=== PATIENT | male | born 1945 | race Caucasian/White ===

== ENCOUNTER 2024-04-23 13:28 | Emergency (ER) | payer MEDICARE ==
[2024-04-23 13:41] VITALS: TEMP 97.3
--- NOTE | 2024-04-23 13:45 | ED ---
General Adult HPI - General Chief complaint: Syncope Stated complaint: Syncope Time Seen by Provider: 04/23/24 13:38 Source: patient, EMS Mode of arrival: EMS - History of Present Illness Initial comments: Pt is an 78-year-old male presenting for syncopal episode and rib pain. Recently drove up from [place], where he lives. Was working in his attic 2 days ago and leaning over a railing against his ribs. Throughout his drive to [place] he had persistent right rib pain that he had difficulty controlling with his home [place] which he usually takes for back pain. Today patient went to an urgent care to have his rib pain evaluated when while sitting and waiting for evaluation, went to stand, became pale and sweaty and had a syncopal episode. He did not hit his head. Patient states that this has happened to him before and is not a new occurrence for him. He follows with a sales recruiting coordinator team in [place]. He denies any chest pain aside from right lateral rib pain. Does note left flank pain and left lower quadrant pain that began today as well. Denies difficulty in breathing but states there is pain in his ribs with deep breathing. In regards to syncopal episode denies prodrome of dizziness or lightheadedness. He was sent form urgent care due to syncope however patient is more concerned regarding right right pain. Denies trauma. Denies fevers. No cough. - Related Data Previous Rx's Medication Instructions Recorded HYDROcodone/APAP 10-325MG [[place] 1 tab PO Q6HR PRN 3 Days #12 tab 04/23/24 10-325] Allergies Allergy/AdvReac Type Severity Reaction Status Date / Time Sulfa (Sulfonamide Allergy Rash/Hives Verified 04/23/24 13:41 Antibiotics) Review of Systems ROS Statement: Those systems with pertinent positive or pertinent negative responses have been documented in the HPI. Past Medical History Past Medical History: Atrial Fibrillation, Cancer, COPD, Hyperlipidemia, Hypertension, Rheumatoid Arthritis (RA) Additional Past Medical History / Comment(s): chronic back pain, prostate ca approx 2003 Past Surgical History: Orthopedic Surgery, Tonsillectomy Additional Past Surgical History / Comment(s): nasal polyps, mitral valve repair Smoking Status: Former smoker Past Alcohol Use History: Rare Past Drug Use History: None Reported General Exam - General Exam Comments Initial Comments: PE: CONSTITUTIONAL: No apparent distress, well appearing SKIN: Warm, dry, no jaundice, hives or petechiae, small bruise to right posterior ribs EYES: Pupils are equally round, extraocular movements intact without nystagmus, clear conjunctiva, non-icteric sclera HENT: Normocephalic, atraumatic, moist mucus membranes, oropharynx clear without exudates NECK: , Full range of motion, normal appearance PULMONARY: Clear to auscultation without wheezes, rhonchi, or rales, normal exc ursion, no accessory muscle use and no stridor CARDIOVASCULAR: Regular rate, rhythm, normal S1 and S2. Soft systolic murmur present, no rubs or gallops. Strong radial pulses with intact distal perfusion. No lower extremity edema GASTROINTESTINAL: Soft,minimal Left CVA TTP, minimal LLQ TTP, non-distended, no palpable masses, no rebound or guarding. No hepatosplenomegaly GENITOURINARY: MUSCULOSKELETAL: Extremities have no gross deformity, no edema, redness, or swelling. No calf swelling. NEUROLOGIC:_a/o x 3, GCS 15, normal mentation and speech. Moves all extremities x 4 without motor or sensory deficit PSYCHIATRIC:_normal mood and affect, thought process is clear and linear Course Vital Signs 04/23/24 04/23/24 04/23/24 13:33 18:28 20:32 Temperature 97.3 F L Pulse Rate 55 L 68 65 Respiratory 20 18 18 Rate Blood Pressure 106/56 119/66 116/78 O2 Sat by Pulse 97 95 96 Oximetry EKG Findings - EKG Comments: EKG Findings:: Atrial fibrillation, QRS duration 135 ms, QT/QTc 445/417, no obvious ST elevations or depressions Medical Decision Making - Medical Decision Making Triage note reviewed, patient urgent care for rib pain following laying in an attic doing work yesterday, patient became sweaty and pale upon standing and had a near syncopal episode, history of atrial fibrillation with slow heart rate, temp 97.3 degrees oral, pulse rate 55, respiratory rate 20, pulse blood pressure 105/56, O2 sat 97% on room air tried to review prior visits however no prior visits to this ED available and reports Was pt. sent in by a medical professional or institution (, PA, ART DEALER, urgent care, hospital, or penitentiary...) When possible be specific @ -Patient sent by local urgent care Did you speak to anyone other than the patient for history (EMS, parent, family, police, friend...)? What history was obtained from this source @ - assisted in providing history Did you review nursing and triage notes (agree or disagree)? Why? @ -I reviewed and agree with nursing and triage notes Were old charts reviewed (outside hosp., previous admission, EMS record, old EKG, old radiological studies, urgent care reports/EKG's, penitentiary records)? Report findings @ -No old charts available for review Differential Diagnosis (chest pain, altered mental status, abdominal pain women, abdominal pain men, vaginal bleeding, weakness, fever, dyspnea, syncope, headache, dizziness, GI bleed, back pain, seizure, CVA, palpatations, mental health, musculoskeletal)? @ -Differential diagnosis remains broad however regarding rib pain top considerations include rib fracture, contusion, pneumonia, PE, pleural effusion this is not all-inclusive list. In addition in regards to syncopal episode differential diagnosis remains broad however top considerations include valvular disease, PE, tamponade, tachycardia, bradycardia, ACS, hypovolemia, anemia, hypoglycemia, this is an all-inclusive list EKG interpreted by me (3pts min.). @ -As above X-rays interpreted by me (1pt min.). @ -None done CT interpreted by me (1pt min.). @ -CT chest abdomen pelvis, IN CT chest I see no evidence of large pleural effusion or PE, I see no evidence of rib fracture, CT abdomen pelvis shows no evidence of perforation or obstruction. Given elevated total bilirubin I also reviewed gallbladder, does not appear enlarged or inflamed U/S interpreted by me (1pt. min.). @ -No common bile duct dilation or gallbladder wall thickening What testing was considered but not performed or refused? (CT, X-rays, U/S, labs)? Why? @ -None What meds were considered but not given or refused? Why? @ -None Did you discuss the management of the patient with other professionals (professionals i.e. , PA, ART DEALER, lab, RT, psych nurse, manager social responsibility, sand worker, teacher, state patrol officer, correctional case manager)? Give summary @ -No Was smoking cessation discussed for >3mins.? @ -No Was critical care preformed (if so, how long)? @ -No Were there social determinants of health that impacted care today? How? (Homelessness, low income, unemployed, alcoholism, drug addiction, transportation, low edu. Level, literacy, decrease access to med. care, snf, rehab)? @ -No Was there de-escalation of care discussed even if they declined (Discuss DNR or withdrawal of care, Hospice)? @ -No What co-morbidities impacted this encounter? (DM, HTN, Smoking, COPD, CAD, Cancer, CVA, ARF, Chemo, Hep., AIDS, mental health diagnosis, sleep apnea, morbid obesity)? @Atrial fibrillation, hypertension, hyperlipidemia, chronic pain Was patient admitted / discharged? Hospital course, mention meds given and route, prescriptions, significant lab abnormalities, going to OR and other pertinent info. @ -Hospital course Discharged- Patient is a pleasant 82-year-old gentleman presenting today for right rib pain and a syncopal episode. Was seen at urgent care prior to arrival and syncopized while there. On assessment patient well-appearing, jovial and pleasant. No tong ue lacerations/tongue biting noted. Systolic murmur present on cardiac exam. No lower extremity edema. Lungs clear to auscultation bilaterally. Small bruise to posterior aspect of the right rib. No other bruising. Minimal left flank pain/ CVA TTP and minimal LLQ TTP, abdomen otherwise soft, nondistended no palpable masses. Pt does have a hx of mitral valvular heart disease. Discussed plan for IV fluids, pain control labs, imaging. Pt agreeable with POC. Reviewed patient's labs which were significant for mild leukocytosis with white blood cell count of 14.8, total bilirubin 1.6, LFTs within normal limits, labs otherwise unremarkable. CT PE study negative for pulmonary embolism, no rib f ractures noted. CT abdomen/pelvis negative. T. bili 1.6 LFTs within normal limits. Given patient's right rib, could potentially be right upper quadrant pain I will obtain upper ultrasound right upper quadrant. Patient is agreeable. He is still in a significant amount of pain, Dilaudid ordered. Ultrasound not show any acute process. On reassessment patient is more comfortable after dose of Dilaudid. Given he is out of state from his usual primary care doctor and will be admission for the next few weeks will give him a short course of [place] to continue to be able to treat his rib pain I do suspicion there may be an occult rib fracture present. I did offer the patient the opportunity for admission for pain control and further monitoring due to his syncopal episode however patient preferred discharge home stating he would follow-up with his cardiology team in [place] when he returned home. Undiagnosed new problem with uncertain prognosis? @ -No Drug Therapy requiring intensive monitoring for toxicity (Heparin, Nitro, Insulin, Cardizem)? @ -No Were any procedures done? @ -No Diagnosis/symptom? @ -Right rib pain, single episode Acute, or Chronic, or Acute on Chronic? @Acute Uncomplicated (without systemic symptoms) or Complicated (systemic symptoms)? @Complicated Side effects of treatment? @ -No Exacerbation, Progression, or Severe Exacerbation? @ -No Poses a threat to life or bodily function? How? (Chest pain, [place], [place], pneumonia, PE, COPD, DKA, ARF, appy, cholecystitis, CVA, Diverticulitis, Homicidal, Suicidal, threat to staff... and all critical care pts) @Unlikely - Lab Data Result diagrams: 04/23/24 15:16 04/23/24 15:16 Lab Results 04/23/24 04/23/24 04/23/24 Range/Units 15:16 15:16 15:16 WBC 14.8 H (3.8-10.6) k/uL RBC 4.71 (4.30-5.90) m/uL Hgb 14.2 (13.0-17.5) gm/dL Hct 41.2 (39.0-53.0) % MCV 87.6 (80.0-100.0) fL MCH 30.2 (25.0-35.0) pg MCHC 34.5 (31.0-37.0) g/dL RDW 15.0 (11.5-15.5) % Plt Count 263 (150-450) k/uL MPV 8.8 Neutrophils % 82 % Lymphocytes % 9 % Monocytes % 7 % Eosinophils % 2 % Basophils % 0 % Neutrophils # 12.1 H (1.3-7.7) k/uL Lymphocytes # 1.3 (1.0-4.8) k/uL Monocytes # 1.0 (0-1.0) k/uL Eosinophils # 0.2 (0-0.7) k/uL Basophils # 0.0 (0-0.2) k/uL PT 13.2 H (10.0-12.5) sec INR 1.2 H (<1.2) APTT 29.4 (22.0-30.0) sec Sodium 136 L (137-145) mmol/L Potassium 4.2 (3.5-5.1) mmol/L Chloride 105 (98-107) mmol/L Carbon Dioxide 23 (22-30) mmol/L Anion Gap 8 mmol/L BUN 13 (9-20) mg/dL Creatinine 0.93 (0.66-1.25) mg/dL Est GFR (CKD-EPI)AfAm 90 (>60 ml/min/1.73 sqM) Est GFR (CKD-EPI)NonAf 78 (>60 ml/min/1.73 sqM) Glucose 137 H (74-99) mg/dL POC Glucose (mg/dL) (70-110) mg/dL POC Glu Telephone Lineman ID Calcium 9.3 (8.4-10.2) mg/dL Magnesium 1.6 (1.6-2.3) mg/dL Total Bilirubin 1.6 H (0.2-1.3) mg/dL AST 31 (17-59) U/L ALT 17 (4-49) U/L Alkaline Phosphatase 81 (38-126) U/L Troponin I (0.000-0.034) ng/mL NT-Pro-B Natriuret Pep pg/mL Total Protein 6.8 (6.3-8.2) g/dL Albumin 4.1 (3.5-5.0) g/dL Urine Color Urine Appearance (Clear) Urine pH (5.0-8.0) Ur Specific [place] (1.001-1.035) Urine Protein (Negative) Urine Glucose (UA) (Negative) Urine Ketones (Negative) Urine Blood (Negative) Urine Nitrite (Negative) Urine Bilirubin (Negative) Urine Urobilinogen (<2.0) mg/dL Ur Leukocyte Esterase (Negative) 04/23/24 04/23/24 04/23/24 Range/Units 15:16 15:16 15:29 WBC (3.8-10.6) k/uL RBC (4.30-5.90) m/uL Hgb (13.0-17.5) gm/dL Hct (39.0-53.0) % MCV (80.0-100.0) fL MCH (25.0-35.0) pg MCHC (31.0-37.0) g/dL RDW (11.5-15.5) % Plt Count (150-450) k/uL MPV Neutrophils % % Lymphocytes % % Monocytes % % Eosinophils % % Basophils % % Neutrophils # (1.3-7.7) k/uL Lymphocytes # (1.0-4.8) k/uL Monocytes # (0-1.0) k/uL Eosinophils # (0-0.7) k/uL Basophils # (0-0.2) k/uL PT (10.0-12.5) sec INR (<1.2) APTT (22.0-30.0) sec Sodium (137-145) mmol/L Potassium (3.5-5.1) mmol/L Chloride (98-107) mmol/L Carbon Dioxide (22-30) mmol/L Anion Gap mmol/L BUN (9-20) mg/dL Creatinine (0.66-1.25) mg/dL Est GFR (CKD-EPI)AfAm (>60 ml/min/1.73 sqM) Est GFR (CKD-EPI)NonAf (>60 ml/min/1.73 sqM) Glucose (74-99) mg/dL POC Glucose (mg/dL) 124 H (70-110) mg/dL POC Glu Telephone Lineman ID Henrry, Luz Calcium (8.4-10.2) mg/dL Magnesium (1.6-2.3) mg/dL Total Bilirubin (0.2-1.3) mg/dL AST (17-59) U/L ALT (4-49) U/L Alkaline Phosphatase (38-126) U/L Troponin I <0.012 (0.000-0.034) ng/mL NT-Pro-B Natriuret Pep 863 pg/mL Total Protein (6.3-8.2) g/dL Albumin (3.5-5.0) g/dL Urine Color Urine Appearance (Clear) Urine pH (5.0-8.0) Ur Specific [place] (1.001-1.035) Urine Protein (Negative) Urine Glucose (UA) (Negative) Urine Ketones (Negative) Urine Blood (Negative) Urine Nitrite (Negative) Urine Bilirubin (Negative) Urine Urobilinogen (<2.0) mg/dL Ur Leukocyte Esterase (Negative) 04/23/24 Range/Units 16:51 WBC (3.8-10.6) k/uL RBC (4.30-5.90) m/uL Hgb (13.0-17.5) gm/dL Hct (39.0-53.0) % MCV (80.0-100.0) fL MCH (25.0-35.0) pg MCHC (31.0-37.0) g/dL RDW (11.5-15.5) % Plt Count (150-450) k/uL MPV Neutrophils % % Lymphocytes % % Monocytes % % Eosinophils % % Basophils % % Neutrophils # (1.3-7.7) k/uL Lymphocytes # (1.0-4.8) k/uL Monocytes # (0-1.0) k/uL Eosinophils # (0-0.7) k/uL Basophils # (0-0.2) k/uL PT (10.0-12.5) sec INR (<1.2) APTT (22.0-30.0) sec Sodium (137-145) mmol/L Potassium (3.5-5.1) mmol/L Chloride (98-107) mmol/L Carbon Dioxide (22-30) mmol/L Anion Gap mmol/L BUN (9-20) mg/dL Creatinine (0.66-1.25) mg/dL Est GFR (CKD-EPI)AfAm (>60 ml/min/1.73 sqM) Est GFR (CKD-EPI)NonAf (>60 ml/min/1.73 sqM) Glucose (74-99) mg/dL POC Glucose (mg/dL) (70-110) mg/dL POC Glu Telephone Lineman ID Calcium (8.4-10.2) mg/dL Magnesium (1.6-2.3) mg/dL Total Bilirubin (0.2-1.3) mg/dL AST (17-59) U/L ALT (4-49) U/L Alkaline Phosphatase (38-126) U/L Troponin I (0.000-0.034) ng/mL NT-Pro-B Natriuret Pep pg/mL Total Protein (6.3-8.2) g/dL Albumin (3.5-5.0) g/dL Urine Color Light Yellow Urine Appearance Clear (Clear) Urine pH 6.5 (5.0-8.0) Ur Specific [place] >1.050 H (1.001-1.035) Urine Protein Negative (Negative) Urine Glucose (UA) Negative (Negative) Urine Ketones Negative (Negative) Urine Blood Negative (Negative) Urine Nitrite Negative (Negative) Urine Bilirubin Negative (Negative) Urine Urobilinogen <2.0 (<2.0) mg/dL Ur Leukocyte Esterase Negative (Negative) Disposition Clinical Impression: Syncope, Rib pain on right side Disposition: HOME SELF-CARE Condition: Good Instructions (If sedation given, give patient instructions): Chest Pain (ED) Additional Instructions: Every disease is a spectrum and a small chance still exists that a serious condition could develop, for this reason, please monitor yourself closely for new, changing or worsening symptoms, symptoms that persist beyond 48 hours, difficulty in breathing, coughing up blood, any further episodes of feeling like you are going to pass out or passing out, chest pain, shortness of breath, swelling in your legs fever, inability to tolerate/keep down fluids or your me dications, inability to follow up with outpatient providers as instructed and should you experience these symptoms or should you have any further concerns for your wellbeing please return to the ED or call 911 immediately. PLEASE call your primary care physician as soon as possible to arrange / discuss plan for followup appointment. Appointment in the next 1-3 days is strongly encouraged if possible. PLEASE let us know here before you leave if there is anything further we can do to be of any assistance. Take care and feel Better! Prescriptions: HYDROcodone/APAP 10-325MG [[place] 10-325] 1 tab PO Q6HR PRN 3 Days #12 tab PRN Reason: Pain Is patient prescribed a controlled substance at d/c from ED?: Yes When asked, does pt state using other controlled substances?: Yes If prescribed controlled substance>3 days was MAPS reviewed?: Yes If opioid is for acute pain is fill amount 7 days or less?: Yes If Rx opioid, was Start Talking consent form obtained?: Yes Referrals: Nonstaff,Physician [Primary Care Provider] - 1-2 days
[2024-04-23] MEDS: LIDOCAINE 4% PATCH TOPICAL ONE (15:17)
[2024-04-23] MEDS: SODIUM CHLORIDE 0.9% 500 ML 500 ML IV ONE (15:17)
[2024-04-23] MEDS: ONDANSETRON 4 MG/2 ML VIAL IVP STA (15:18)
[2024-04-23] MEDS: MORPHINE SULFATE 4 MG/ML SYRINGE IVP STA (15:18)
[2024-04-23 15:30] LABS: Glucose,Whole Blood 124 mg/dL (70-110)
[2024-04-23 15:42] LABS: INR 1.2 (<1.2); Partial Thromboplastin Time 29.4 sec (22.0-30.0); Prothrombin Time 13.2 sec (10.0-12.5)
[2024-04-23 15:44] LABS: Basophils % (A) 0 %; Eosinophils # (A) 0.2 k/uL (0-0.7); Eosinophils % (A) 2 %; HCT 41.2 % (39.0-53.0); HGB 14.2 gm/dL (13.0-17.5); Lymphocytes # (A) 1.3 k/uL (1.0-4.8); Lymphocytes % (A) 9 %; MCH 30.2 pg (25.0-35.0); MCHC 34.5 g/dL (31.0-37.0); MCV 87.6 fL (80.0-100.0); Mean Platelet Volume 8.8; Monocytes % (A) 7 %; Neutrophils # (A) 12.1 k/uL (1.3-7.7); Neutrophils % (A) 82 %; Platelet Count 263 k/uL (150-450); RBC 4.71 m/uL (4.30-5.90); WBC 14.8 k/uL (3.8-10.6)
[2024-04-23 15:45] LABS: ALT 17 U/L (4-49); African American GFR (CKD) 90 (>60 ml/min/1.73 sqM); Albumin 4.1 g/dL (3.5-5.0); Anion Gap 8 mmol/L; Blood Urea Nitrogen 13 mg/dL (9-20); Calcium 9.3 mg/dL (8.4-10.2); Carbon Dioxide 23 mmol/L (22-30); Chloride 105 mmol/L (98-107); Glucose 137 mg/dL (74-99); Non-African American GFR(CKD) 78 (>60 ml/min/1.73 sqM); Sodium 136 mmol/L (137-145); Total Bilirubin 1.6 mg/dL (0.2-1.3); Total Protein 6.8 g/dL (6.3-8.2)
[2024-04-23 15:56] LABS: AST 31 U/L (17-59); Alkaline Phosphatase 81 U/L (38-126); Magnesium 1.6 mg/dL (1.6-2.3); Potassium 4.2 mmol/L (3.5-5.1)
--- NOTE | 2024-04-23 16:47 | CT ---
EXAMINATION TYPE: CT angio chest CT DLP: 525.8 mGycm, Automated exposure control for dose reduction was used. DATE OF EXAM: 04/23/2024 4:26 PM COMPARISON: None CLINICAL INDICATION: Male, 78 years old with history of syncope concern for PE; SYNCOPE TECHNIQUE/CONTRAST: CTA scan of the thorax is performed with IV Contrast, patient injected with 100 mL of Isovue 370, MIP images are created and reviewed these are created on a separate workstation.. FINDINGS: Pulmonary Artery: There is no evidence for a filling defect within the pulmonary vasculature to sugge st acute pulmonary embolism. The pulmonary artery is of normal size. Lungs/Pleura: No evidence of focal consolidation, pleural effusion or pneumothorax centrilobular emph ysema changes. Streaky atelectasis in the lung bases. Partially calcified right pulmonary hilum lymph nodes.. Airway: Large airways are patent. Heart: The heart is mildly enlarged for size. Atherosclerosis of the coronary arteries lipomatous hyp ertrophy of interatrial septum. Vasculature: No evidence of aortic aneurysm. Mediastinum: No gross evidence of adenopathy. Musculoskeletal: No acute osseous abnormalities Soft Tissues/lymph nodes: Unremarkable. Lower neck: No significant findings. Upper Abdomen: No significant findings. IMPRESSION: 1. No evidence of pulmonary embolism. 2. No evidence for acute process. 3. Trace right pleural effusion an cardiomegaly correlate with serum BNP. 4. Mild centrilobular emphysema.
--- NOTE | 2024-04-23 16:50 | CT ---
EXAMINATION TYPE: CT abdomen pelvis w con CT DLP: 933.8 mGycm, Automated exposure control for dose reduction was used. DATE OF EXAM: 04/23/2024 4:29 PM COMPARISON: None. CLINICAL INDICATION: Male, 78 years old with history of syncope concern for PE; SYNCOPE TECHNIQUE: Axial CT abdomen pelvis w con;Sagittal and coronal reformats were created on a separate w orkstation. Contrast used:100 mL of Isovue 370 with IV Contrast, (none if empty) Oral contrast used: without Oral Contrast (none if empty) FINDINGS: LOWER CHEST: Unremarkable ABDOMEN LIVER: Unremarkable GALLBLADDER AND BILE DUCTS: Unremarkable. PANCREAS: Unremarkable. SPLEEN: Unremarkable. ADRENAL GLANDS: Unremarkable. KIDNEYS AND URETERS: No evidence of hydronephrosis or renal calculus. The ureters are unremarkable. PELVIS BLADDER: Unremarkable REPRODUCTIVE: Unremarkable. ABDOMEN & PELVIS STOMACH AND BOWEL: No evidence of bowel obstruction. Moderate to large amount of stool throughout the colon. The appendix is normal. PERITONEUM/RETROPERITONEUM: No evidence of pneumoperitoneum or free fluid. VASCULATURE: No evidence of aortic aneurysm. Fusiform ectasia of the infrarenal abdominal aorta up to 28 mm. MUSCULOSKELETAL: No acute osseous abnormalities LYMPH NODES: No gross evidence for lymphadenopathy. SOFT TISSUE/ABDOMINAL WALL: Fat-containing inguinal hernia. IMPRESSION: 1. No evidence for acute abdominal process. 2. Moderate to large amount of stool throughout the colon.
[2024-04-23 17:14] LABS: Appearance,Urine Clear (Clear); Bilirubin,Urine Negative (Negative); Blood,Urine Negative (Negative); Color,Urine Light Yellow; Glucose,Urine (UA) Negative (Negative); Ketones,Urine Negative (Negative); Leukocyte Esterase,Urine Negative (Negative); Nitrite,Urine Negative (Negative); PH, Urine 6.5 (5.0-8.0); Protein,Urine Negative (Negative); Urobilinogen,Urine <2.0 mg/dL (<2.0)
[2024-04-23 17:27] LABS: Specific Gravity,Urine >1.050 (1.001-1.035)
[2024-04-23] MEDS: MAGNESIUM SULFATE-D5W PMX 1 GM in DEXTROSE/WATER 1 100ML.BAG IVPB ONE (18:23)
[2024-04-23] MEDS: HYDROmorphone 1 MG/ML 1 ML SYRINGE IVP STA (18:24)
[2024-04-23 18:31] VITALS: RESP 18
--- NOTE | 2024-04-23 19:57 | US ---
EXAMINATION TYPE: US abdomen limited DATE OF EXAM: 04/23/2024 COMPARISON: CT same day CLINICAL INDICATION: Male, 78 years old with history of RUQ pain, elevated T bili normal LFTs; Abdome n pain TECHNIQUE: Multiple sonographic images of the right upper quadrant are obtained. FINDINGS: EXAM MEASUREMENTS: Liver Length: 15.4 cm Gallbladder Wall: 0.2 cm CBD: 0.4 cm Right Kidney: 9.7 x 6.1 x 5.6 cm Difficult and limited study due to patient body habitus Pancreas: obscured by overlying midline bowel gas Liver: scanned intercostally, visualized portions wnl Gallbladder: limited by overlying bowel gas, visualized portions wnl Evidence for sonographic Mariee's sign: no CBD: limited by overlying bowel gas, visualized portions wnl Right Kidney: No shadowing calculus or hydronephrosis. Possible mild cortical thinning. IMPRESSION: Limited study shows no evidence of cholelithiasis, cholecystitis, or biliary ductal dilatation.
[2024-04-23 20:34] VITALS: BP 116/78; PULSE 65
== END 2024-04-23 20:34 | disposition home or self-care (01) ==
LOC: EC 13:28
CPT/HCPCS: 36415; 71275; 74177; 76705; 80053; 81003; 83735; 83880; 84484; 85025; 85610; 85730; 93005; 96361; 96365; 96375; 99285